=== PATIENT | male | born 1990 | race Caucasian/White ===

== ENCOUNTER 2017-08-26 00:32 | Emergency (ER) | payer SELFPAY ==
[~2017-08-26] VITALS: Ht 180.3 cm; Wt 70.2 kg
[2017-08-26 00:36] VITALS: BP 121/71
== END 2017-08-26 01:22 | disposition left against medical advice (07) ==
LOC: ED 01:19
DX: Z53.21 Procedure and treatment not carried out due to patient leaving prior to being seen by health care provider (principal)